=== PATIENT | female | born 1950 | race Caucasian/White ===

== ENCOUNTER 2018-03-29 13:42 | Observation (INO) | payer OTHER, MEDICARE ==
--- NOTE | 2018-03-29 13:45 | PDOC ---
History of Present Illness - General Chief Complaint: CVA/TIA Stated Complaint: R/O STROKE Time Seen by Provider: 03/29/18 13:44 - History of Present Illness Initial Comments: The patient is a 68F w/ a history of HLD and stroke (10y ago) who presents for evaluation of amnesia. The patient reports that she remembers getting up/ready and driving to the [employer] this morning. However, she does not remember her time at the museum, nor does she remember driving home. Her states that he called her around 1300 and at that time she was responding inappropriately to questions. The patient had reportedly driven herself home by then. At that time, the called a friend to bring her to the ED Last seen normal at [phone] today Upon arrival at the hospital the patient was soon after able to recall that she was at the hospital who he had interacted with here, and why she was here. However, she was still unable to recall the previous portions of her day 03/29/18 14:10 tPA Exclusion checklist 3-4.5h - Time Elapsed Date last known well: 03/29/18 Time last known well: 08:00 Elaspsed time: Day(s) and 10 Hour(s) and 27 Minutes - Thrombolytic Therapy Candidate Is patient eligible for thrombolytic therapy: No - Ineligibility reason(s) Reasons No tPA given: Outside of window - delayed arrival NIH Stroke Scale - Last Known Well Date/Time & Onset Date Last Known Well: 03/29/18 Time Last Known Well: 08:00 - Initial Evaluation Level of consciousness: Alert Ask patient the month and their age: Answers one correctly Ask patient to open & close eyes; make fist and let go: Obeys both correctly Best gaze (horizontal eye movement): Normal Visual field testing: No visual field loss Facial paresis (Show teeth/raise eyebrows/close eyes tight): Normal symmetrical movement Motor Function: Left Arm: Normal Motor Function: Right Arm: Normal (extends arm 90 (or 45) degrees for 10 seconds without drift Motor Function: Left Leg: Normal (extends leg 30 degrees for 5 seconds without drift) Motor Function: Right Leg: Normal (extends leg 30 degrees for 5 seconds without drift) Limb Ataxia: No ataxia Sensory(Use pinprick test arms,legs,trunk,face/side to side): Normal Best language (Describe picture, name items, read sentences): No Aphasia Dysarthria (read several words): Normal articulation Extinction and Inattention: No abnormality - Total Score NIH Stroke Scale Score: 1 Past History - Past Medical History Allergies/Adverse Reactions: Allergies Allergy/AdvReac Type Severity Reaction Status Date / Time No Known Allergies Allergy Verified 03/29/18 13:43 Home Medications: Ambulatory Orders Aspirin [ASA -] 81 mg PO DAILY 03/29/18 Latanoprost 2.5 ml OP DAILY 03/29/18 Rosuvastatin [Crestor -] 10 mg PO DAILY 03/29/18 Review of Systems - Review of Systems Able to Perform ROS?: Yes Comments:: GENERAL/CONSTITUTIONAL: No fever or chills. No weakness HEAD, EYES, EARS, NOSE AND THROAT: No change in vision. No ear pain or discharge. No sore throat CARDIOVASCULAR: No chest pain or shortness of breath RESPIRATORY: No cough, wheezing, or hemoptysis GASTROINTESTINAL: No nausea, vomiting, diarrhea or constipation GENITOURINARY: No dysuria, frequency, or change in urination MUSCULOSKELETAL: No joint or muscle swelling or pain. No neck or back pain SKIN: No rash NEUROLOGIC: No vertigo, loss of consciousness, or change in strength/sensation ENDOCRINE: No increased thirst. No abnormal weight change HEMATOLOGIC/LYMPHATIC: No anemia, easy bleeding, or history of blood clots ALLERGIC/IMMUNOLOGIC: No hives or skin allergy 03/29/18 13:44 Is the patient limited Samoan proficient: No *Physical Exam - Vital Signs Vital Signs Temp Pulse Resp BP Pulse Ox 97.4 F L 89 20 141/74 99 03/29/18 13:43 03/29/18 17:11 03/29/18 17:11 03/29/18 17:11 03/29/18 17:11 03/29/18 18:21 - Physical Exam Comments: GENERAL: Awake, alert, and fully oriented, in no acute distress HEAD: No signs of trauma, normocephalic, atraumatic EYES: PERRL, EOMI, sclera anicteric, conjunctiva clear ENT: Hearing grossly normal, nares patent, oropharynx clear without exudates. Moist mucosa NECK: Normal ROM, supple, no lymphadenopathy LUNGS: No distress, speaks full sentences, clear to auscultation bilaterally HEART:Regular rate and rhythm, normal S1 and S2, no murmurs appreciated, peripheral pulses normal and equal bilaterally ABDOMEN: Soft, nontender, normoactive bowel sounds. No guarding, no rebound EXTREMITIES : Normal inspection, Normal range of motion, no edema. No clubbing or cyanosis NEUROLOGICAL: Cranial nerves II through XII grossly intact. Normal speech, no focal sensorimotor deficits SKIN: Warm, Dry, normal turgor, no rashes or lesions noted 03/29/18 13:44 ED Treatment Course - LABORATORY CBC & Chemistry Diagram: 03/29/18 14:38 03/29/18 14:38 Medical Decision Making - Medical Decision Making The patient is a 68F w/ a history of stroke 10y ago who presents for evaluation of global amnesia today NIH 1 Out of window for TPA Patient took her ASA and Statin today CMP, CBC, T/S CT Head ECG 03/29/18 15:32 Plan for admission for evaluation and MRI for global amnesia Consult for Dr. Dos Santos for neurologic consult Page sent to Dr. Martines - [phone] ECG w/o evidence of acute ischemia Lytes wnl No evidence of UTI on UA No leukocytosis No anemia No evidence of acute CVA on CT Head Dispo: Admit 03/29/18 18:22 *DC/Admit/Observation/Transfer Diagnosis at time of Disposition: Global amnesia - Discharge Dispostion Condition at time of disposition: Good Decision to Admit order: Yes - Referrals - Patient Instructions - Post Discharge Activity
--- NOTE | 2018-03-29 13:46 | PDOC ---
Attending Attestation - Resident Resident Name: Yury Rob - ED Attending Attestation I have performed the following: I have examined & evaluated the patient, The case was reviewed & discussed with the resident, I agree w/resident's findings & plan, Exceptions are as noted - HPI HPI: 03/29/18 15:01 68yo female presents ambulatory with her neighbor for eval of confusion/ disorientation. Per the neighbor the patient was last seen normal at 8am. 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 Pt arrives with repetative speech, confused and unable to provide a complete hx. Pt with memory difficulty of the events of today and yesterday. Pt currently denies can. Pt with repetative speech and keeps saying - "I had a stroke 10 years ago and my right hand and foot hurt intermittently when I get worked up". - Physicial Exam PE: 03/29/18 15:06 Gen: awake, alert and oriented to person, not time. Not place HEENT: PERRL, EOMI, MMM Neck: supple, no jvd Heart: +s1s2 reg Lungs: cta b/l Abd: soft, nt/nd +bs Ext: no c/c/e, muscle strength 5/5 ue and le, radial and pedal pulses intact neuro: tongue deviation to the L otherwise cn intact, aaox1 - person, muscle strenght 5/5 UE and LE, sensation intact, amnesia to the events of the day skin: warm, dry, intact, no rashes - Medical Decision Making 03/29/18 13:46 I, Dr. Thea Hou, DO, attest that this document has been prepared under my direction and personally reviewed by me in its entirety. I further attest, that it accurately reflects all work, treatment, procedures and medical decision -making performed by me. 03/29/18 15:09 a/p: 68yo female with amnesia and confusion - last known well was 8am -hx of CVA and HTN -stat head ct ordered, however pt is outside the window for tpa -pt with amnesia for the events of the day, confused to place and time -will send labs, ua, ekg, cxr, trop, head ct -will monitor and reassess 03/29/18 15:[address] shows old cva with encephalomalacia 03/29/18 15:11 now at the bedside and states hx of CVA 10 years ago - follows with Neuro at [facility] Dr. Martines [phone] Martines 03/29/18 15:[address] Martines 03/29/18 15:[address] Colin - will admit for global amnesia vs cva. will obtain MRI brain, will place consult to Dr. Colin resident sent microblog to [facility] for admission 03/29/18 16:48 resident discussed the case with [facility] who accepts pt to service pt and updated by the resident Heart Score/ECG Review - ECG Intrepretation Comment:: 03/29/18 15:08 sinus at 68, nl axis, nl interval, no acute st/t wave findings
[2018-03-29 14:18] LABS: URINE APPEARANCE Clear; URINE BILIRUBIN Negative (NEGATIVE); URINE COLOR Yellow; URINE GLUCOSE (UA) Negative (NEGATIVE); URINE KETONE Negative (NEGATIVE); URINE LEUK ESTERASE Negative (NEGATIVE); URINE NITRITE Negative (NEGATIVE); URINE PROTEIN Negative (NEGATIVE); URINE UROBILINOGEN 0.2 (0.2-1.0)
[2018-03-29 14:55] LABS: EPI CELLS FEW /HPF; URINE WBC 0-2 (0-5)
[2018-03-29 15:01] LABS: BASO % 1.1 % (0-2.0); EOS % 1.5 % (0-4.5); HEMATOCRIT 45.5 % (32.4-45.2); HEMOGLOBIN 14.9 GM/dl (10.7-15.3); LYMPH % 20.7 % (8-40); MCH 30.6 pg (25.7-33.7); MCHC 32.8 g/dl (32.0-36.0); MEAN CELL VOLUME 93.3 fl (80-96); MEAN PLT VOLUME 8.1 fl (7.5-11.1); MONO % 6.2 % (3.8-10.2); NEUT % 70.5 % (42.8-82.8); PLATELET COUNT 241 K/MM3 (134-434); RBC 4.88 M/mm3 (3.60-5.2); RDW 12.5 % (11.6-15.6); WHITE BLOOD COUNT 8.5 K/mm3 (4.0-10.8)
[2018-03-29] MEDS ORDERED: HEMOQUE TEST 1 EACH EACH ONE (15:07)
[2018-03-29 15:16] LABS: ALBUMIN 3.9 g/dl (3.5-5.0); ALK PHOS 92 U/L (32-92); ANION GAP 10 MMOL/L (8-16); BILIRUBIN,TOTAL 0.7 mg/dl (0.2-1.0); BLOOD UREA NITROGEN 14 mg/dl (7-18); CALCIUM 8.9 mg/dl (8.4-10.2); CHLORIDE 103 mmol/L (98-107); CO2 21 mmol/L (22-28); CREATININE 0.5 mg/dl (0.6-1.3); GLUCOSE,RANDOM 87 mg/dl (74-106); MAGNESIUM 2.1 mg/dL (1.8-2.4); POTASSIUM 3.9 mmol/L (3.5-5.1); SGOT/AST 24 U/L (10-42); SGPT/ALT 20 U/L (10-40); SODIUM 134 mmol/L (136-145)
[2018-03-29] MEDS ORDERED: ACETAMINOPHEN 500 MG TABLET (FP) PO ONE (15:19)
[2018-03-29] MEDS ORDERED: METOCLOPRAMIDE HCL INJECTION 10 MG/2 ML VIAL IVPUSH ONE (15:19)
[2018-03-29] MEDS ORDERED: ACETAMINOPHEN 500 MG TABLET (FP) ONE (15:53)
[2018-03-29] MEDS ORDERED: METOCLOPRAMIDE HCL INJECTION 10 MG/2 ML VIAL ONE (15:53)
[2018-03-29 16:58] LABS: INR 1.02 (0.82-1.09); PROTHROMBIN TIME (PATIENT) 11.4 SEC (10.2-13.0)
--- NOTE | 2018-03-29 17:55 | CON.NEURO ---
Consult - Alcohol/Substance Use Hx Alcohol Use: No - Smoking History Smoking history: Never smoked Have you smoked in the past 12 months: No Home Medications - Allergies Allergies/Adverse Reactions: Allergies Allergy/AdvReac Type Severity Reaction Status Date / Time No Known Allergies Allergy Verified 03/29/18 13:43 Physical Exam-Neuro Vital Signs: Vital Signs Temperature 97.4 F L 03/29/18 13:43 Pulse Rate 89 03/29/18 17:11 Respiratory Rate 20 03/29/18 17:11 Blood Pressure 141/74 03/29/18 17:11 O2 Sat by Pulse Oximetry (%) 99 03/29/18 17:11 Labs: CBC, BMP 03/29/18 14:38 03/29/18 14:38 INR, PTT INR 1.02 (0.82-1.09) 03/29/18 15:51 Assessment/Plan cc Disorientation since morning of March 29 HPI 68 year old female histor of stroke ten years ago, low blood pressure and glaucoma. She [place]iams to museum today am and when her called her around 1 pm , she was disoriented and confused. Her call their neighbour and she was brought to hospital. Patient has repetative speech and confusion. Now she seems to be feeling better and her feels she is back to normal self. There is no witness seizure activity, tongue bite or incontinence or fever . There is no head injury. PMH as above PSHX, ROS, Family history reviewed in chart Neurological Examination Alert oriented x 3, able to repeat eomi, pupils reactive no face asymmetry moving all ext, 5/5 all ext sensation is noraml ct head is normal Assessment- Most likely [employer] amnesia, vs TIA Plan- I woudl do mri of brain and carotid ultrasound - continue aspirin and lipitor - she seems to be back to normal, no need for PT - will contineu to follow
--- NOTE | 2018-03-29 17:57 | HP ---
CHIEF COMPLAINT: Transient episode of AMS PCP: Dr. Kumar Herring in [facility] Neurologist: Dr. Martines at [facility] [phone] HISTORY OF PRESENT ILLNESS: 68 year old female with a PMH significant for CVA (2003), HLD, and glaucoma presented to the ED after an approximately 5 hour episode of total memory loss. 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 The next thing she remembers is seeing her next door neighbor in her house at approximately 1 in the afternoon. She does not remember driving home from work. Her called her at 1:00 and found her to be confused with nonsensical answers to his questions, though speech was clear. He then asked the next door neighbor to take her to the hospital. Patient's car was noted to be parked in good alignment to the curb. Patient remembers arriving to the hospital, and she now feels back to her baseline. She has does not have any idea as to the cause of such an episode. Denies trauma to the head, falls, recent weight change, no new medication or diet changes. No chronic HAs, dizziness, syncopal episodes, or seizures. No SOB, congestion, or recent illness. No chest pain, palpitation, FITZPATRICK , hemoptysis. No abdominal pain, n/v/d. Denies recent life stressors, depression or anxiety. She received her Flu shot 3 weeks ago. In the ED her BP upon arrival patient was afebrile but PB was 187/101, P 75, but normalized to 141/74, P 89 one hour later. Patient reports that she has never had HTN and usually her BP runs very low. She had an NIH score of 1. CT of the head unremarkable for acute intracranial pathology. ECG unremarkable for acute ischemic event. No significant findings seen on labs or UA. Patient was given Reglan and APAP. 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 [employer] Smoking: Never Alcohol: 2-3 glasses of white wine per day Drugs: Denies Family History: Mother: Kidney Cancer, age 54 Father: Heart attack, age 56 Allergies No Known Allergies Allergy (Verified 03/29/18 13:43) HOME MEDICATIONS: ASA 81 Crestor 10 Timolol Lantanoprost REVIEW OF SYSTEMS CONSTITUTIONAL: Absent: fever, chills, diaphoresis, generalized weakness, malaise, loss of appetite, weight change HEENT: Absent: rhinorrhea, nasal congestion, throat pain, throat swelling, difficulty swallowing, mouth swelling, ear pain, eye pain, visual changes CARDIOVASCULAR: Absent: chest pain, syncope, palpitations, irregular heart rate, lightheadedness , peripheral edema RESPIRATORY: Absent: cough, shortness of breath, dyspnea with exertion, orthopnea, wheezing, stridor, hemoptysis GASTROINTESTINAL: (+) burping for the past several days Absent: abdominal pain, abdominal distension, nausea, vomiting, diarrhea, constipation, melena, hematochezia GENITOURINARY: Absent: dysuria, frequency, urgency, hesitancy, hematuria, flank pain, genital pain MUSCULOSKELETAL: (+) Chronic residual pain to right hand and right foot Absent: myalgia, arthralgia, joint swelling, back pain, neck pain SKIN: Absent: rash, itching, pallor HEMATOLOGIC/IMMUNOLOGIC: Absent: easy bleeding, easy bruising, lymphadenopathy, frequent infections ENDOCRINE: Absent: unexplained weight gain, unexplained weight loss, heat intolerance, cold intolerance NEUROLOGIC: Absent: headache, focal weakness or paresthesias, dizziness, unsteady gait, seizure, mental status changes, bladder or bowel incontinence PSYCHIATRIC: Absent: anxiety, depression, suicidal or homicidal ideation, hallucinations. PHYSICAL EXAMINATION Vital Signs - 24 hr 03/29/18 03/29/18 03/29/18 13:43 14:47 15:57 Temperature 97.4 F L Pulse Rate 75 Pulse Rate [ 69 84 Right] Respiratory 20 20 Rate Blood Pressure 187/101 H Blood Pressure 154/81 146/89 [Left Arm] O2 Sat by Pulse 130 H 98 99 Oximetry (%) 03/29/18 17:11 Temperature Pulse Rate Pulse Rate [ 89 Right] Respiratory 20 Rate Blood Pressure Blood Pressure 141/74 [Left Arm] O2 Sat by Pulse 99 Oximetry (%) GENERAL: Well-groomed, awake, alert, and fully oriented, in no acute distress. HEAD: Normal with no signs of trauma. EYES: Conjunctiva injected b/l, pupils equal, round and reactive to light, extraocular movements intact, conjunctiva clear. No lid lag. EARS, NOSE, THROAT: nares patent, oropharynx clear without exudates. Moist mucous membranes. NECK: Normal range of motion, supple without lymphadenopathy, JVD, or masses. LUNGS: Breath sounds equal, clear to auscultation bilaterally. No wheezes, and no crackles. No accessory muscle use. HEART: Slightly tachycardic rate, regular rhythm, normal S1 and S2 without murmur, rub or gallop. ABDOMEN: Soft, nontender, not distended, normoactive bowel sounds, no guarding, no rebound, no masses. No hepatomegaly or splenomegaly. MUSCULOSKELETAL: Normal range of motion at all joints. No bony deformities or tenderness. No CVA tenderness. UPPER EXTREMITIES: 2+ pulses, warm, well-perfused. No cyanosis. No clubbing. No peripheral edema. LOWER EXTREMITIES: 2+ pulses, warm, well-perfused. No calf tenderness. No peripheral edema. NEUROLOGICAL: B/l equal strength to all 4 extremities, no neuro or focal deficit; no facial droop, tongue midline, normal speech. PSYCHIATRIC: Cooperative. Good eye contact. Appropriate mood and affect. SKIN: Erythema and telangiectasia to b/l cheeks and nose with Warm, dry, normal turgor, no rashes or lesions noted, normal capillary refill. Laboratory Results - last 24 hr 03/29/18 03/29/18 03/29/18 14:09 14:38 14:38 WBC RBC Hgb Hct MCV MCH MCHC RDW Plt Count MPV Absolute Neuts (auto) Neutrophils % Lymphocytes % Monocytes % Eosinophils % Basophils % PT with INR INR Sodium 134 L Potassium 3.9 Chloride 103 Carbon Dioxide 21 L Anion Gap 10 BUN 14 Creatinine 0.5 L Creat Clearance w eGFR > 60 POC Glucometer Random Glucose 87 Calcium 8.9 Magnesium 2.1 Total Bilirubin 0.7 AST 24 ALT 20 Alkaline Phosphatase 92 Creatine Kinase 76 Troponin I < 0.03 Total Protein 7.0 Albumin 3.9 Urine Color Yellow Urine Appearance Clear Urine pH 6.0 Ur Specific Warren <= 1.005 L Urine Protein Negative Urine Glucose (UA) Negative Urine Ketones Negative Urine Blood Trace-lysed H Urine Nitrite Negative Urine Bilirubin Negative Urine Urobilinogen 0.2 Ur Leukocyte Esterase Negative Urine RBC 2-5 Urine WBC 0-2 Ur Epithelial Cells Few 03/29/18 03/29/18 03/29/18 14:38 15:10 15:51 WBC 8.5 RBC 4.88 Hgb 14.9 Hct 45.5 H MCV 93.3 MCH 30.6 MCHC 32.8 RDW 12.5 Plt Count 241 MPV 8.1 Absolute Neuts (auto) 6.0 Neutrophils % 70.5 Lymphocytes % 20.7 Monocytes % 6.2 Eosinophils % 1.5 Basophils % 1.1 PT with INR 11.4 INR 1.02 Sodium Potassium Chloride Carbon Dioxide Anion Gap BUN Creatinine Creat Clearance w eGFR POC Glucometer [id number] Random Glucose Calcium Magnesium Total Bilirubin AST ALT Alkaline Phosphatase Creatine Kinase Troponin I Total Protein Albumin Urine Color Urine Appearance Urine pH Ur Specific Warren Urine Protein Urine Glucose (UA) Urine Ketones Urine Blood Urine Nitrite Urine Bilirubin Urine Urobilinogen Ur Leukocyte Esterase Urine RBC Urine WBC Ur Epithelial Cells CT of the head without contrast Focal encephalomalacia in the left frontal lobe without gross evidence of acute intracranial pathology. ASSESSMENT/PLAN: 68 year old female with a PMH significant for CVA 2004, HLD, and glaucoma presented to the ED with a transient episode of memory loss. Patient placed on observation for further empiric work up. ?[employer] amnesia vs TIA -BP 187/101 -> 141/74, continue to monitor BP -Trend troponins, #1 negative -Utox negative -Serum ETOH pending -BC pending -MRI of the brain without contrast ordered -Echocardiogram, Serial EKGs, Carotid US ordered -Seen by neurologist Dr. Colin -Continue Aspirin and Lipitor Glaucoma -Continue Timilol and Lantanoprost gtts GI Prophylaxis -Protonix 40 mg qday FEN --Banana bag @ 125cc/hr --Replete electrolytes as indicated. --NPO until banana bag finished, regular diet starting tomorrow. DVT Prophylaxis --On Asa --OOB ambulation Dispo: pt currently requires further inpatient observation. FULL CODE Visit type - Emergency Visit Emergency Visit: Yes ED Registration Date: 03/29/18 Care time: The patient presented to the Emergency Department on the above date and was hospitalized for further evaluation of their emergent condition. - New Patient This patient is new to me today: Yes Date on this admission: 03/30/18 - Critical Care Critical Care patient: No
[2018-03-29] MEDS ORDERED: ATORVASTATIN CA 40 MG TABLET (FP) PO ONE (18:00)
[2018-03-29] MEDS: ASPIRIN 81 MG CHEWABLE TABLETS PO SCH (18:21)
[2018-03-29] MEDS ORDERED: PANTOPRAZOLE 40 MG TABLET (FP) PO ONE (18:26)
[2018-03-29] MEDS ORDERED: FOLIC ACID INJECTION - 1 MG, THIAMINE HCL 100 MG, MULTIVIT INJECTION ADULT 10 ML in SOD... IVPB ONE (18:56)
[2018-03-29 20:11] LABS: COCAINE, UR NEGATIVE ng/ml (CUTOFF=300); METHADONE, UR NEGATIVE ng/ml (CUTOFF=300); OPIATES, URI NEGATIVE ng/ml (CUTOFF=300); PHENCYCLIDINE,URINE NEGATIVE ng/ml (CUTOFF=25); URINE AMPHETAMINES NEGATIVE ng/ml (CUTOFF=500); URINE BARBITURATES NEGATIVE ng/ml (CUTOFF=200); URINE BENZODIAZEPINES NEGATIVE ng/ml (CUTOFF=200)
[2018-03-29 20:19] VITALS: BMI 23.2
[2018-03-29] MEDS ORDERED: LATANOPROST 0.005% OPHTH SOLN 2.5ML BOTTLE OU SCH (22:00)
[2018-03-29] MEDS ORDERED: ROSUVASTATIN CA 10 MG TABLET (FP) PO SCH (22:00)
[2018-03-30 06:58] VITALS: BP 121/71; PULSE 98; TEMP 99.3
--- NOTE | 2018-03-30 08:44 | PN ---
Physical Exam: SUBJECTIVE: Patient seen and examined OBJECTIVE: Vital Signs Period Temp Pulse Resp BP Sys/[place] Pulse Ox Last 24 Hr 97.4 F-99.3 F 69-103 17-20 121-187/50-101 97-130 GENERAL: The patient is awake, alert, and fully oriented, in no acute distress. HEAD: Normal with no signs of trauma. EYES: PERRL, extraocular movements intact, sclera anicteric, conjunctiva clear. No ptosis. ENT: Ears normal, nares patent, oropharynx clear without exudates, moist mucous membranes. NECK: Trachea midline, full range of motion, supple. LUNGS: Breath sounds equal, clear to auscultation bilaterally, no wheezes, no crackles, no accessory muscle use. HEART: Regular rate and rhythm, S1, S2 without murmur, rub or gallop. ABDOMEN: Soft, nontender, nondistended, normoactive bowel sounds, no guarding, no rebound, no hepatosplenomegaly, no masses. EXTREMITIES: 2+ pulses, warm, well-perfused, no edema. NEUROLOGICAL: Cranial nerves II through XII grossly intact. Normal speech, gait not observed. PSYCH: Normal mood, normal affect. SKIN: Warm, dry, normal turgor, no rashes or lesions noted Laboratory Results - last 24 hr 03/29/18 03/29/18 03/29/18 14:09 14:38 14:38 WBC RBC Hgb Hct MCV MCH MCHC RDW Plt Count MPV Absolute Neuts (auto) Neutrophils % Lymphocytes % Monocytes % Eosinophils % Basophils % PT with INR INR Sodium 134 L Potassium 3.9 Chloride 103 Carbon Dioxide 21 L Anion Gap 10 BUN 14 Creatinine 0.5 L Creat Clearance w eGFR > 60 POC Glucometer Random Glucose 87 Hemoglobin A1c % Calcium 8.9 Magnesium 2.1 Total Bilirubin 0.7 AST 24 ALT 20 Alkaline Phosphatase 92 Creatine Kinase 76 Troponin I < 0.03 Total Protein 7.0 Albumin 3.9 TSH 1.20 Urine Color Yellow Urine Appearance Clear Urine pH 6.0 Ur Specific [place] <= 1.005 L Urine Protein Negative Urine Glucose (UA) Negative Urine Ketones Negative Urine Blood Trace-lysed H Urine Nitrite Negative Urine Bilirubin Negative Urine Urobilinogen 0.2 Ur Leukocyte Esterase Negative Urine RBC 2-5 Urine WBC 0-2 Ur Epithelial Cells Few Opiates Screen Methadone Screen Barbiturate Screen Phencyclidine Screen Ur Amphetamines Screen MDMA (Ecstasy) Screen Benzodiazepines Screen Cocaine Screen U Marijuana (THC) Screen Alcohol, Quantitative < 3.0 03/29/18 03/29/18 03/29/18 14:38 15:10 15:51 WBC 8.5 RBC 4.88 Hgb 14.9 Hct 45.5 H MCV 93.3 MCH 30.6 MCHC 32.8 RDW 12.5 Plt Count 241 MPV 8.1 Absolute Neuts (auto) 6.0 Neutrophils % 70.5 Lymphocytes % 20.7 Monocytes % 6.2 Eosinophils % 1.5 Basophils % 1.1 PT with INR 11.4 INR 1.02 Sodium Potassium Chloride Carbon Dioxide Anion Gap BUN Creatinine Creat Clearance w eGFR POC Glucometer [id number] Random Glucose Hemoglobin A1c % Calcium Magnesium Total Bilirubin AST ALT Alkaline Phosphatase Creatine Kinase Troponin I Total Protein Albumin TSH Urine Color Urine Appearance Urine pH Ur Specific [place] Urine Protein Urine Glucose (UA) Urine Ketones Urine Blood Urine Nitrite Urine Bilirubin Urine Urobilinogen Ur Leukocyte Esterase Urine RBC Urine WBC Ur Epithelial Cells Opiates Screen Methadone Screen Barbiturate Screen Phencyclidine Screen Ur Amphetamines Screen MDMA (Ecstasy) Screen Benzodiazepines Screen Cocaine Screen U Marijuana (THC) Screen Alcohol, Quantitative 03/29/18 03/29/18 03/29/18 17:50 20:30 21:00 WBC RBC Hgb Hct MCV MCH MCHC RDW Plt Count MPV Absolute Neuts (auto) Neutrophils % Lymphocytes % Monocytes % Eosinophils % Basophils % PT with INR INR Sodium Potassium Chloride Carbon Dioxide Anion Gap BUN Creatinine Creat Clearance w eGFR POC Glucometer Random Glucose Hemoglobin A1c % 5.5 Calcium Magnesium Total Bilirubin AST ALT Alkaline Phosphatase Creatine Kinase Troponin I < 0.03 Total Protein Albumin TSH Urine Color Urine Appearance Urine pH Ur Specific [place] Urine Protein Urine Glucose (UA) Urine Ketones Urine Blood Urine Nitrite Urine Bilirubin Urine Urobilinogen Ur Leukocyte Esterase Urine RBC Urine WBC Ur Epithelial Cells Opiates Screen Negative Methadone Screen Negative Barbiturate Screen Negative Phencyclidine Screen Negative Ur Amphetamines Screen Negative MDMA (Ecstasy) Screen Negative Benzodiazepines Screen Negative Cocaine Screen Negative U Marijuana (THC) Screen Negative Alcohol, Quantitative 03/30/18 02:30 WBC RBC Hgb Hct MCV MCH MCHC RDW Plt Count MPV Absolute Neuts (auto) Neutrophils % Lymphocytes % Monocytes % Eosinophils % Basophils % PT with INR INR Sodium Potassium Chloride Carbon Dioxide Anion Gap BUN Creatinine Creat Clearance w eGFR POC Glucometer Random Glucose Hemoglobin A1c % Calcium Magnesium Total Bilirubin AST ALT Alkaline Phosphatase Creatine Kinase Troponin I < 0.02 Total Protein Albumin TSH Urine Color Urine Appearance Urine pH Ur Specific [place] Urine Protein Urine Glucose (UA) Urine Ketones Urine Blood Urine Nitrite Urine Bilirubin Urine Urobilinogen Ur Leukocyte Esterase Urine RBC Urine WBC Ur Epithelial Cells Opiates Screen Methadone Screen Barbiturate Screen Phencyclidine Screen Ur Amphetamines Screen MDMA (Ecstasy) Screen Benzodiazepines Screen Cocaine Screen U Marijuana (THC) Screen Alcohol, Quantitative Active Medications Generic Name Dose Route Start Last Admin Trade Name Freq PRN Reason Stop Dose Admin Aspirin 81 mg 03/29/18 18:00 03/29/18 18:21 Asa - PO Not Given DAILY ARAM Latanoprost 1 drop 03/29/18 22:00 03/29/18 21:59 Xalatan 0.005% Eye Drops - OU 1 drop HS ARAM Administration Pantoprazole Sodium 40 mg 03/30/18 10:00 Protonix - PO 03/30/18 10:01 DAILY ONE Rosuvastatin Calcium 10 mg 03/29/18 22:00 03/29/18 21:59 Crestor - PO 10 mg HS ARAM Administration Timolol Maleate 1 drop 03/30/18 10:00 Timoptic 0.5% OU DAILY ARAM ASSESSMENT/PLAN:
[2018-03-30] MEDS ORDERED: PT OWN MED DRAWER 7, Y5N ONE (09:46)
[2018-03-30] MEDS ORDERED: TIMOLOL 0.5% OPHTHALMIC SOL 5 ML BOTTLE OU SCH (10:00)
[2018-03-30] MEDS ORDERED: ASPIRIN 81 MG CHEWABLE TABLETS PO SCH (10:00)
[2018-03-30] MEDS ORDERED: PANTOPRAZOLE 40 MG TABLET (FP) PO ONE (10:00)
[2018-03-30] MEDS: ASPIRIN 81 MG CHEWABLE TABLETS PO SCH (10:00)
--- NOTE | 2018-03-30 12:23 | DS ---
Physical Exam: SUBJECTIVE: Patient seen and examined, voices no complaints, wants to go home. OBJECTIVE:68 year old female with a PMH significant for CVA (2004), HLD, and glaucoma presented to the ED after an approximately 5 hour episode of total memory loss. 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 The next thing she remembers is seeing her next door neighbor in her house at approximately 1 in the afternoon. She does not remember driving home from work. Her called her at 1:00 and found her to be confused with nonsensical answers to his questions, though speech was clear. He then asked the next door neighbor to take her to the hospital. Patient's car was noted to be parked in good alignment to the curb. Patient remembers arriving to the hospital, and she now feels back to her baseline. She has does not have any idea as to the cause of such an episode. Denies trauma to the head, falls, recent weight change, no new medication or diet changes. No chronic HAs, dizziness, syncopal episodes, or seizures. No SOB, congestion, or recent illness. No chest pain, palpitation, FITZPATRICK, hemoptysis. No abdominal pain, n/v/d. Denies recent life stressors, depression or anxiety. She received her Flu shot 3 weeks ago. In the ED her BP upon arrival patient was afebrile but PB was 187/101, P 75, but normalized to 141/74, P 89 one hour later. Patient reports that she has never had HTN and usually her BP runs very low. She had an NIH score of 1. CT of the head unremarkable for acute intracranial pathology. ECG unremarkable for acute ischemic event. No significant findings seen on labs or UA. Patient was given Reglan and APAP. Vital Signs Period Temp Pulse Resp BP Sys/[place] Pulse Ox Last 24 Hr 97.4 F-99.3 F 69-103 17-20 121-187/50-101 97-130 PHYSICAL EXAM GENERAL: The patient is awake, alert, and fully oriented, in no acute distress. HEAD: Normal with no signs of trauma. EYES: PERRL, extraocular movements intact, sclera anicteric, conjunctiva clear. ENT: Ears normal, nares patent, oropharynx clear without exudates, moist mucous membranes. NECK: Trachea midline, full range of motion, supple. LUNGS: Breath sounds equal, clear to auscultation bilaterally, no wheezes, no crackles, no accessory muscle use. HEART: Regular rate and rhythm, S1, S2 without murmur, rub or gallop. ABDOMEN: Soft, nontender, nondistended, normoactive bowel sounds, no guarding, no rebound, no hepatosplenomegaly, no masses. EXTREMITIES: 2+ pulses, warm, well-perfused, no edema. NEUROLOGICAL: Cranial nerves II through XII grossly intact. Normal speech, gait not observed. PSYCH: Normal mood, normal affect. SKIN: Warm, dry, normal turgor, no rashes or lesions noted. LABS Laboratory Results - last 24 hr 03/29/18 03/29/18 03/29/18 14:09 14:38 14:38 WBC RBC Hgb Hct MCV MCH MCHC RDW Plt Count MPV Absolute Neuts (auto) Neutrophils % Lymphocytes % Monocytes % Eosinophils % Basophils % PT with INR INR Sodium 134 L Potassium 3.9 Chloride 103 Carbon Dioxide 21 L Anion Gap 10 BUN 14 Creatinine 0.5 L Creat Clearance w eGFR > 60 POC Glucometer Random Glucose 87 Hemoglobin A1c % Calcium 8.9 Magnesium 2.1 Total Bilirubin 0.7 AST 24 ALT 20 Alkaline Phosphatase 92 Creatine Kinase 76 Troponin I < 0.03 Total Protein 7.0 Albumin 3.9 TSH 1.20 Urine Color Yellow Urine Appearance Clear Urine pH 6.0 Ur Specific [place] <= 1.005 L Urine Protein Negative Urine Glucose (UA) Negative Urine Ketones Negative Urine Blood Trace-lysed H Urine Nitrite Negative Urine Bilirubin Negative Urine Urobilinogen 0.2 Ur Leukocyte Esterase Negative Urine RBC 2-5 Urine WBC 0-2 Ur Epithelial Cells Few Opiates Screen Methadone Screen Barbiturate Screen Phencyclidine Screen Ur Amphetamines Screen MDMA (Ecstasy) Screen Benzodiazepines Screen Cocaine Screen U Marijuana (THC) Screen Alcohol, Quantitative < 3.0 03/29/18 03/29/18 03/29/18 14:38 15:10 15:51 WBC 8.5 RBC 4.88 Hgb 14.9 Hct 45.5 H MCV 93.3 MCH 30.6 MCHC 32.8 RDW 12.5 Plt Count 241 MPV 8.1 Absolute Neuts (auto) 6.0 Neutrophils % 70.5 Lymphocytes % 20.7 Monocytes % 6.2 Eosinophils % 1.5 Basophils % 1.1 PT with INR 11.4 INR 1.02 Sodium Potassium Chloride Carbon Dioxide Anion Gap BUN Creatinine Creat Clearance w eGFR POC Glucometer [id number] Random Glucose Hemoglobin A1c % Calcium Magnesium Total Bilirubin AST ALT Alkaline Phosphatase Creatine Kinase Troponin I Total Protein Albumin TSH Urine Color Urine Appearance Urine pH Ur Specific [place] Urine Protein Urine Glucose (UA) Urine Ketones Urine Blood Urine Nitrite Urine Bilirubin Urine Urobilinogen Ur Leukocyte Esterase Urine RBC Urine WBC Ur Epithelial Cells Opiates Screen Methadone Screen Barbiturate Screen Phencyclidine Screen Ur Amphetamines Screen MDMA (Ecstasy) Screen Benzodiazepines Screen Cocaine Screen U Marijuana (THC) Screen Alcohol, Quantitative 03/29/18 03/29/18 03/29/18 17:50 20:30 21:00 WBC RBC Hgb Hct MCV MCH MCHC RDW Plt Count MPV Absolute Neuts (auto) Neutrophils % Lymphocytes % Monocytes % Eosinophils % Basophils % PT with INR INR Sodium Potassium Chloride Carbon Dioxide Anion Gap BUN Creatinine Creat Clearance w eGFR POC Glucometer Random Glucose Hemoglobin A1c % 5.5 Calcium Magnesium Total Bilirubin AST ALT Alkaline Phosphatase Creatine Kinase Troponin I < 0.03 Total Protein Albumin TSH Urine Color Urine Appearance Urine pH Ur Specific [place] Urine Protein Urine Glucose (UA) Urine Ketones Urine Blood Urine Nitrite Urine Bilirubin Urine Urobilinogen Ur Leukocyte Esterase Urine RBC Urine WBC Ur Epithelial Cells Opiates Screen Negative Methadone Screen Negative Barbiturate Screen Negative Phencyclidine Screen Negative Ur Amphetamines Screen Negative MDMA (Ecstasy) Screen Negative Benzodiazepines Screen Negative Cocaine Screen Negative U Marijuana (THC) Screen Negative Alcohol, Quantitative 03/30/18 02:30 WBC RBC Hgb Hct MCV MCH MCHC RDW Plt Count MPV Absolute Neuts (auto) Neutrophils % Lymphocytes % Monocytes % Eosinophils % Basophils % PT with INR INR Sodium Potassium Chloride Carbon Dioxide Anion Gap BUN Creatinine Creat Clearance w eGFR POC Glucometer Random Glucose Hemoglobin A1c % Calcium Magnesium Total Bilirubin AST ALT Alkaline Phosphatase Creatine Kinase Troponin I < 0.02 Total Protein Albumin TSH Urine Color Urine Appearance Urine pH Ur Specific [place] Urine Protein Urine Glucose (UA) Urine Ketones Urine Blood Urine Nitrite Urine Bilirubin Urine Urobilinogen Ur Leukocyte Esterase Urine RBC Urine WBC Ur Epithelial Cells Opiates Screen Methadone Screen Barbiturate Screen Phencyclidine Screen Ur Amphetamines Screen MDMA (Ecstasy) Screen Benzodiazepines Screen Cocaine Screen U Marijuana (THC) Screen Alcohol, Quantitative CT of the head without contrast Focal encephalomalacia in the left frontal lobe without gross evidence of acute intracranial pathology. MRI of brain: no acute or subacute infarction. chronic left cerebral infarct involving the inferior aspect of the left parietal lobe, left precentral gyrus of the frontal lobe, posterior gyrus of the parietal lobe in the vascular territories with a cortical branches of the MCA as per radiologist Dr Thomas carotid doppler: no hemodynamic significant stenosis HOSPITAL COURSE: patient was admitted from emergency department to telemetry observation for trans-global amnesia versus TIA. Troponin 3 WNL MRI of brain notable as above. She was placed on 24 hour cardiac monitoring, no events was noted. Ultrasound noted as above. Dr Colin, neurologist consulted. aspirin and statin was continued throughout admission plan - continue all medications as prescribed - follow up with primary care physician and neurologist within 1 week Date of Admission:03/29/18 Date of Discharge: 03/30/18 Minutes to complete discharge: 45 Discharge Summary Reason For Visit: GLOBAL AMNESIA Current Active Problems Global amnesia (Acute) Condition: Good - Instructions - Home Medications Comprehensive Discharge Medication List: Ambulatory Orders Aspirin [ASA -] 81 mg PO DAILY 03/29/18 Latanoprost 2.5 ml OP DAILY 03/29/18 Rosuvastatin [Crestor -] 10 mg PO DAILY 03/29/18 Timolol 0.5% [Timoptic 0.5%] 1 drop OU DAILY 03/29/18
--- NOTE | 2018-03-30 15:00 | ECHO ---
Name: WENDI GOLDSTEIN Exam:Adult Echocardiogram Study Date: 03/30/2018 10:23 AM Age: 68 yrs Reason For Study: TRANSIENT AMNESIA WITH ELEVATED BP Height: 63 in Weight: 132 lb BSA: 1.6 m2 MMode/2D Measurements & Calculations IVSd: 0.99 cm Ao root diam: 2.3 cm LVIDd: 4.6 cm LA dimension: 3.1 cm LVIDs: 3.1 cm LVPWd: 0.89 cm EDV(Teich): 95.7 ml ESV(Teich): 38.0 ml Doppler Measurements & Calculations MV E max linda: 42.6 cm/sec Ao V2 max: 123.3 cm/sec MV A max linda: 51.6 cm/sec Ao max P.1 mmHg MV E/A: 0.83 LV V1 max P.5 mmHg LV V1 max: 79.8 cm/sec Left Ventricle The left ventricular size, thickness and function are normal. LVEF = 65%. E/A reversal consistent wit h but not diagnostic of poor LV compliance. No regional wall motion abnormalities noted. Right Ventricle The right ventricle is normal in size and function. Atria Normal left and right atrial size and function. Mitral Valve There is mild mitral valve thickening. There is trace mitral regurgitation. Tricuspid Valve The tricuspid valve is normal. There is trace tricuspid regurgitation. There was insufficient TR dete cted to calculate RV systolic pressure. Aortic Valve The aortic valve is normal in structure and function. Pulmonic Valve The pulmonic valve is not well visualized. Great Vessels The aortic root is normal size. Pericardium/Pleura There is no pericardial effusion. Interpretation Summary This was essentially a normal study. MD Ruby Caba 03/30/2018 03:00 PM
--- NOTE | 2018-03-30 16:12 | EKG ---
Test Reason : Blood Pressure : / mmHG Vent. Rate : 067 BPM Atrial Rate : 067 BPM P-R Int : 144 ms QRS Dur : 082 ms QT Int : 416 ms P-R-T Axes : 055 034 072 degrees QTc Int : 439 ms NORMAL SINUS RHYTHM NONSPECIFIC ST ABNORMALITY ABNORMAL ECG NO PREVIOUS ECGS AVAILABLE Confirmed by MD JESSICA, BLAINE ([id number]) on 03/30/2018 4:11:47 PM Referred By: DOLORES RIOS Confirmed By:BLAINE LOPEZ MD
== END 2018-03-30 15:44 | disposition home or self-care (01) ==
LOC: FER 13:42 → FM/S 15:29
PROVIDERS: ADMIT Internal Medicine; ATTEND Nurse Practitioner Family
PROC: 3E033GC Introduction of Other Therapeutic Substance into Peripheral Vein, Percutaneous Approach (ICD-10-PCS; principal; 2018-03-29)
DX: G45.4 Transient global amnesia (principal); E78.5 Hyperlipidemia, unspecified; H40.9 Unspecified glaucoma; Z86.73 Personal history of transient ischemic attack (TIA), and cerebral infarction without residual deficits; Z79.82 Long term (current) use of aspirin
CPT/HCPCS: 36415; 70450-TC; 70551-TC; 80053; 80307; 81003; 81015; 82550; 82962; 83036; 83735; 84443; 84484; 85025; 85610; 87040; 87086; 93005; 93306-TC; 93880-TC; 96365; 96366; 96375; 99285-25; G0378; J7030